=== PATIENT | male | born 1975 | race Caucasian/White ===

== ENCOUNTER 2022-10-14 22:50 | Emergency (ER) | payer MEDICAID ==
[2022-10-14 23:32] LABS: Hematocrit 41.8 % (39.6-49.0); MCV 89.9 fL (80-100); MPV 8.1 fL (7.6-11.3); RBC Red Blood Cell Count 4.66 M/uL (4.33-5.43)
[2022-10-15 00:26] LABS: Potassium 3.8 mmol/L (3.5-5.1); Troponin High Sensitivity 4.7 pg/mL (<58.9)
--- NOTE | 2022-10-15 00:36 | EDPHYS ---
Physician Documentation [facility] Name: Jakob Thorpe Age: 47 yrs Sex: Male : 1975 Arrival Date: 10/14/2022 Time: 22:54 Bed 3 Private MD: ED Physician Dmitriy Pleitez HPI: 10/15 00:15 This 47 yrs old Male presents to ER via Ambulatory with complaints of Chest Pain, Blood rt Pressure Problem, Dizziness. 00:15 The patient or guardian reports chest pain that is located primarily in the substernal rt area. Onset: 1 hour(s) ago. The pain does not radiate. Associated signs and symptoms: Pertinent positives: dizziness, Pertinent negatives: cough, diaphoresis, shortness of breath. The chest pain is described as sharp. Duration: The patient or guardian reports a single episode, that is now resolved. Modifying factors: The symptoms are alleviated by nothing. the symptoms are aggravated by nothing. She presents to the ED with a sharp substernal chest pain started by 45 minutes prior to arrival. The symptoms have subsequently resolved. Patient denies other acute complaints at this time, symptoms moderate severity, no other aggravating alleviating factors.. Historical: - Allergies: 10/14 23:17 No Known Allergies; bb - Home Meds: 23:17 gabapentin oral [Active]; aripiprazole oral [Active]; quetiapine oral [Active]; bb Hydroxyzine Oral [Active]; Propranolol Oral [Active]; - PMHx: 23:17 Hypertensive disorder; Bipolar disorder; bb - PSHx: 23:17 Appendectomy; Foot surgery; Elbow surgery; Neck fusion; bb - Immunization history:: Client reports receiving the 2nd dose of the Covid vaccine. - Social history:: Smoking status: Patient denies any tobacco usage or history of. - Family history:: not pertinent. ROS: 10/15 00:15 Constitutional: Negative for fever, chills, and weight loss, Eyes: Negative for injury, rt pain, redness, and discharge, ENT: Negative for injury, pain, and discharge, Neck: Negative for injury, pain, and swelling, Respiratory: Negative for shortness of breath, cough, wheezing, and pleuritic chest pain, Abdomen/GI: Negative for abdominal pain, nausea, vomiting, diarrhea, and constipation, MS/Extremity: Negative for injury and deformity, Skin: Negative for injury, rash, and discoloration, Neuro: Negative for headache, weakness, numbness, tingling, and seizure, Psych: Negative for depression, anxiety, suicide ideation, homicidal ideation, and hallucinations. Cardiovascular: Positive for chest pain, Negative for edema. Exam: 10/14 23:46 ECG was reviewed by the Attending Physician. rt 10/15 00:15 Constitutional: This is a well developed, well nourished patient who is awake, alert, rt and in no acute distress. Head/Face: Normocephalic, atraumatic. Eyes: Pupils equal round and reactive to light, extra-ocular motions intact. Lids and lashes normal. Conjunctiva and sclera are non-icteric and not injected. Cornea within normal limits. Periorbital areas with no swelling, redness, or edema. ENT: Nares patent. No nasal discharge, no septal abnormalities noted. Tympanic membranes are normal and external auditory canals are clear. Oropharynx with no redness, swelling, or masses, exudates, or evidence of obstruction, uvula midline. Mucous membranes moist. Neck: Trachea midline, no thyromegaly or masses palpated, and no cervical lymphadenopathy. Supple, full range of motion without nuchal rigidity, or vertebral point tenderness. No Meningismus. Chest/axilla: Normal chest wall appearance and motion. Nontender with no deformity. No lesions are appreciated. Respiratory: Lungs have equal breath sounds bilaterally, clear to auscultation and percussion. No rales, rhonchi or wheezes noted. No increased work of breathing, no retractions or nasal flaring. Abdomen/GI: Soft, non-tender, with normal bowel sounds. No distension or tympany. No guarding or rebound. No evidence of tenderness throughout. Skin: Warm, dry with normal turgor. Normal color with no rashes, no lesions, and no evidence of cellulitis. MS/ Extremity: Pulses equal, no cyanosis. Neurovascular intact. Full, normal range of motion. Neuro: Awake and alert, GCS 15, oriented to person, place, time, and situation. Cranial nerves II-XII grossly intact. Motor strength 5/5 in all extremities. Sensory grossly intact. Cerebellar exam normal. Normal gait. Psych: Awake, alert, with orientation to person, place and time. Behavior, mood, and affect are within normal limits. Vital Signs: 10/14 23:15 BP 120 / 88; Pulse 99; Resp 14 S; Temp 98(O); Pulse Ox 99% on R/A; Weight 74.84 kg (R); bb Height 5 ft. 8 in. (172.72 cm) (R); Pain 0/10; 23:22 BP 116 / 86; Pulse 64; Resp 18; Pulse Ox 98% on R/A; tw5 23:15 Body Mass Index 25.09 (74.84 kg, 172.72 cm) bb MDM: 23:29 Patient medically screened. rt 10/15 00:38 HEART Score: History: Slightly Suspicious (0), ECG: Normal (0), Age: < or = 45 years rt (0), Risk Factors: No Risk Factors Known (0), Troponin: < or = 1 x Normal Limit (0), Total Score = 0. HEART Score: Risk Factors: 1 or 2 risk factors (1), [Hypertension] Total Score = 1. Data reviewed: vital signs, nurses notes, lab test result(s), EKG, radiologic studies. ED course: Patient presents to the ED with a chest pain that is not typical of an acute coronary syndrome. He has a low heart score, does not require admission for restratification. His EKG is unremarkable, labs are benign. He is PE RC negative, does not require further work-up for pulmonary embolism. Do not suspect TAD. Patient stable for outpatient care, return precautions discussed.. 10/14 23:15 Order name: Basic Metabolic Panel; Complete Time: 00:31 [facility] 10/14 23:15 Order name: CBC with Diff; Complete Time: 00:31 [facility] 10/14 23:15 Order name: Troponin HS; Complete Time: 00:31 [facility] 10/14 23:15 Order name: XRAY Chest (1 view) [facility] 10/14 23:15 Order name: EKG; Complete Time: 23:16 [facility] 10/14 23:15 Order name: Cardiac monitoring; Complete Time: 23:21 [facility] 10/14 23:15 Order name: EKG - Nurse/Tech; Complete Time: 23:21 [facility] 10/14 23:15 Order name: IV Saline Lock; Complete Time: 23:21 [facility] 10/14 23:15 Order name: Labs collected and sent; Complete Time: 23:21 vc1 10/14 23:15 Order name: O2 Per Protocol; Complete Time: 23: vc1 10/14 23:15 Order name: O2 Sat Monitoring; Complete Time: 23: vc EC/24 23:46 Rate is 61 beats/min. Rhythm is regular, Normal Sinus Rhythm with No ectopy. QRS [place] rt is Normal. ID interval is normal. QRS interval is normal. QT interval is normal. No Q waves. T waves are Normal. No ST changes noted. Interpreted by me. Administered Medications: No medications were administered Disposition Summary: 10/15/22 00:36 Discharge Ordered Location: Home rt Problem: new rt Symptoms: are resolved rt Condition: Stable rt Diagnosis - Chest pain, unspecified rt Followup: rt - With: Private Physician - When: 2 - 3 days - Reason: Discharge Instructions: - Discharge Summary Sheet rt - Nonspecific Chest Pain, Adult rt Forms: - Medication Reconciliation Form rt - Thank You Letter rt - Antibiotic Education rt - Prescription Opioid Use rt Signatures: Dispatcher [employer] Steffanie Chester, RN RN bb Nimo Tenorio RN RN vc1 Dmitriy Pleitez MD MD rt
--- NOTE | 2022-10-15 00:36 | ER ---
Nurse's Notes [facility] Name: Jakob Thorpe Age: 47 yrs Sex: Male : 1975 Arrival Date: 10/14/2022 Time: 22:54 Bed 3 Private MD: Diagnosis: Chest pain, unspecified Presentation: 10/14 23:15 Chief complaint: Patient states: he took his meds tonight then had 2 episodes of two bb sharp pains to his chest like a stabbing pain then felt dizzy he had his blood pressure checked and it was low. Coronavirus screen: At this time, the client does not indicate any symptoms associated with coronavirus-19. Ebola Screen: No symptoms or risks identified at this time. Initial Sepsis Screen: Does the patient meet any 2 criteria? No. Patient's initial sepsis screen is negative. Does the patient have a suspected source of infection? No. Patient's initial sepsis screen is negative. Risk Assessment: Do you want to hurt yourself or someone else? Patient reports no desire to harm self or others. Onset of symptoms was October 14, 2022. 23:15 Method Of Arrival: Ambulatory bb 23:15 Acuity: WILI 3 bb Historical: - Allergies: 23:17 No Known Allergies; bb - Home Meds: 23:17 gabapentin oral [Active]; aripiprazole oral [Active]; quetiapine oral [Active]; bb Hydroxyzine Oral [Active]; Propranolol Oral [Active]; - PMHx: 23:17 Hypertensive disorder; Bipolar disorder; bb - PSHx: 23:17 Appendectomy; Foot surgery; Elbow surgery; Neck fusion; bb - Immunization history:: Client reports receiving the 2nd dose of the Covid vaccine. - Social history:: Smoking status: Patient denies any tobacco usage or history of. - Family history:: not pertinent. Screenin:22 [facility] ED Fall Risk Assessment (Adult) History of falling in the last 3 months, tw5 including since admission No falls in past 3 months (0 pts). Abuse screen: Denies threats or abuse. Denies injuries from another. Nutritional screening: No deficits noted. Tuberculosis screening: No symptoms or risk factors identified. Assessment: 23:22 General: Appears in no apparent distress. Behavior is calm, cooperative, appropriate tw5 for age. General: Reports "I was going to sleep when I got a stabbing pain in my chest where my heart is. Now it just feels like a heaviness.". Pain: Complains of pain in chest Pain does not radiate. Pain currently is 0 out of 10 on a pain scale. at worst was 8 out of 10 on a pain scale. Pain began 1 hour ago. Neuro: Level of Consciousness is awake, alert, obeys commands, Oriented to person, place, time, situation. Cardiovascular: Heart tones S1 S2 present Capillary refill < 3 seconds is brisk in left in bilateral. Respiratory: Airway is patent Trachea midline Respiratory effort is even, unlabored. Vital Signs: 23:15 BP 120 / 88; Pulse 99; Resp 14 S; Temp 98(O); Pulse Ox 99% on R/A; Weight 74.84 kg (R); bb Height 5 ft. 8 in. (172.72 cm) (R); Pain 0/10; 23:22 BP 116 / 86; Pulse 64; Resp 18; Pulse Ox 98% on R/A; tw5 23:15 Body Mass Index 25.09 (74.84 kg, 172.72 cm) bb ED Course: 22:54 Patient arrived in ED. ja2 23:05 Dmitriy Pleitez MD is Attending Physician. rt 23:17 Triage completed. bb 23:17 Arm band placed on Patient placed in an exam room, on a stretcher, on pulse oximetry. bb 23:21 Reema Davis is Primary Nurse. tw5 23:21 Basic Metabolic Panel Sent. tw5 23:21 CBC with Diff Sent. tw5 23:21 Troponin HS Sent. tw5 23:22 Awaiting lab results. tw5 23:22 Patient has correct armband on for positive identification. Placed in gown. Bed in low tw5 position. Call light in reach. Side rails up X 1. Client placed on continuous cardiac and pulse oximetry monitoring. NIBP monitoring applied. Door closed. Noise minimized. Lights dimmed. Warm blanket given. Verbal reassurance given. 23:22 No provider procedures requiring assistance completed. Initial lab(s) drawn, by me, tw5 sent to lab. Inserted saline lock: 20 gauge in left antecubital area, using aseptic technique. Blood collected. Patient maintains SpO2 saturation greater than 95% on room air. 23:23 EKG done, by ED staff, reviewed by Dmitriy Pleitez MD. tw5 23:38 XRAY Chest (1 view) In Process Unspecified. EDMS 10/15 00:52 IV discontinued, intact, bleeding controlled, No redness/swelling at site. Pressure tw5 dressing applied. Administered Medications: No medications were administered Medication: 10/14 23:22 VIS not applicable for this client. tw5 Outcome: 10/15 00:36 Discharge ordered by MD. rt 00:52 Discharged to home ambulatory. tw5 00:52 Condition: good 00:52 Discharge instructions given to patient, Instructed on discharge instructions, follow up and referral plans. Demonstrated understanding of instructions, follow-up care. 00:52 Patient left the ED. tw5 Signatures: Dispatcher [employer] EDSteffanie Garza RN RN bb Alexander, Jessica ja2 Wood, Tiffany tw5 Dmitriy Pleitez MD MD rt
[2022-10-15 00:59] VITALS: TEMP 98
[2022-10-15 01:01] VITALS: BP 116/86; O2SAT 98
--- NOTE | 2022-10-15 16:02 | RAD REPORT ---
EXAM DESCRIPTION: Chest Single View CLINICAL HISTORY: 7 years Male, CHEST PAIN COMPARISON: None FINDINGS: No focal lung consolidation. No pleural effusion. No pneumothorax. Cardiomediastinal silhouette is within normal limits. No acute osseous abnormality. IMPRESSION: No acute cardiopulmonary disease. Electronically signed by: Bjorn Dean DO 10/14/2022 11:43 PM ADJUSTER LEADER Due to temporary technical issues with the PACS/Fluency reporting system, reports are being signed by the in house radiologists without review as a courtesy to insure prompt reporting. The interpreting radiologist is fully responsible for the content of the report.
--- NOTE | 2022-10-15 17:01 | EKG ---
Test Date: 2022-10-14 Test Time: 23:19:34 Appliance Service Supervisor: JANA MEASUREMENT RESULTS: Intervals: Rate: 61 WA: 208 QRSD: 92 QT: 396 QTc: 398 [place]: P: 42 WA: 208 QRS: 28 T: 56 INTERPRETIVE STATEMENTS: Normal sinus rhythm Normal ECG No previous ECG available for comparison Electronically Signed On 10-15-22 17:01:00 IMAGING SPECIALIST by Arsh Watson
== END 2022-10-15 00:52 | disposition home or self-care (01) ==
LOC: ER 22:50
DX: R07.89 Other chest pain (principal); I10 Essential (primary) hypertension; F31.9 Bipolar disorder, unspecified
CPT/HCPCS: 36415; 71045; 80048; 84484; 85025; 93005; 99284